=== PATIENT | male | born 1950 | race Caucasian/White ===

== ENCOUNTER 2025-01-30 12:15 | Emergency (ER) | payer OTHER ==
[~2025-01-30] VITALS: Ht 188 cm; Wt 79.4 kg
[2025-01-30] MEDS ORDERED: FentaNYL Citrate 50 MCG/ML 2 ML Injection IV ONE (12:50)
[2025-01-30 14:27] LABS: Alanine Aminotransfer (ALT/SGP 40 U/L (12-78); Albumin, Blood 3.2 g/dL (3.4-5.0); Albumin/Globulin Ratio 1.2 (0.8-1.8); Anion Gap 4 mmol/L (3-11); Aspartate Aminotrans (AST/SGOT 32 U/L (12-37); Bilirubin, Total 1.7 mg/dL (0.1-1.0); Blood Urea Nitrogen 18 mg/dL (8-24); CO2, Blood 30 mmol/L (21-32); Calcium, Blood 8.5 mg/dL (8.5-10.1); Chloride, Blood 104 mmol/L (98-108); Creatinine, Blood 0.63 mg/dL (0.40-1.20); Globulin, Blood 2.7 g/dL (2.2-4.0); Glucose, Blood 93 mg/dL (70-99); Potassium, Blood 3.9 mmol/L (3.5-5.5); Sodium, Blood 134 mmol/L (136-145); Total Protein, Blood 5.9 g/dL (6.4-8.2)
[2025-01-30 14:34] LABS: BASOPHILS ABSOLUTE AUTO 0.07 K/mm3 (0.00-0.23); BASOPHILS PERCENT AUTO 1 % (0-2); EOSINOPHILS ABSOLUTE AUTO 0.23 K/mm3 (0.00-0.68); EOSINOPHILS PERCENT AUTO 3 % (0-6); Hematocrit 37.1 % (33.0-53.0); Hemoglobin 12.2 g/dL (11.5-17.5); IMMATURE GRAN ABSOLUTE AUTO 0.02 K/mm3 (0.00-0.10); IMMATURE GRAN PERCENT AUTO 0 % (0-1); LYMPHOCYTES ABSOLUTE AUTO 1.14 K/mm3 (0.84-5.20); LYMPHOCYTES PERCENT AUTO 12 % (21-46); MONOCYTES ABSOLUTE AUTO 0.61 K/mm3 (0.16-1.47); MONOCYTES PERCENT AUTO 7 % (4-13); Mean Corpuscular HGB Conc 32.9 g/dL (31.5-36.5); Mean Corpuscular Volume 88 fL (80-100); NEUTROPHILS ABSOLUTE AUTO 7.27 K/mm3 (1.96-9.15); NEUTROPHILS PERCENT AUTO 78 % (41-73); NRBC ABSOLUTE 0.00 K/mm3 (0.00-0.02); NRBC Auto 0.0 /100 WBC (0.0-0.2); Platelet Count 177 K/mm3 (150-400); RDW Coefficient Variation 14.7 % (11.7-14.2); RDW Standard Deviation 47.2 fL (35.1-46.3)
[2025-01-31] MEDS ORDERED: ALBU2.5V5 INH (14:35)
[2025-01-31] MEDS ORDERED: ALBU90OI INH (14:35)
[2025-01-31] MEDS ORDERED: ATOR40TA PO (14:36)
[2025-01-31] MEDS ORDERED: ASPI81CH PO (14:36)
[2025-01-31] MEDS ORDERED: CALCIUM PO (14:40)
[2025-01-31] MEDS ORDERED: CLOBETASOL PROP59 ML (14:42)
[2025-01-31] MEDS ORDERED: FLUT1DIS5 INH (14:43)
[2025-01-31] MEDS ORDERED: FLONASE ALLERG9.9 M2 (14:45)
[2025-01-31] MEDS ORDERED: Mucus Relief400 MG PO (14:45)
[2025-01-31] MEDS ORDERED: Isosorbide Mono30 MG PO (14:48)
[2025-01-31] MEDS ORDERED: LORA10ER PO (14:48)
[2025-01-31] MEDS ORDERED: MULVITA PO (14:48)
[2025-01-31] MEDS ORDERED: NITR.4SL SL (14:49)
[2025-01-31] MEDS ORDERED: PANT40 PO (14:50)
[2025-01-31] MEDS ORDERED: TAMS.4ER PO (14:51)
[2025-01-31] MEDS ORDERED: STIOLTO RESPIMAT4 G2 INH (14:52)
== END 2025-01-30 15:26 | disposition home or self-care (01) ==
LOC: ER 12:15 → EDSEX 12:15 → ER 15:26
PROVIDERS: Student in an Organized Health Care Education/Training Program
DX: K41.90 Unilateral femoral hernia, without obstruction or gangrene, not specified as recurrent (principal); I10 Essential (primary) hypertension; N40.0 Benign prostatic hyperplasia without lower urinary tract symptoms; E78.5 Hyperlipidemia, unspecified; K21.9 Gastro-esophageal reflux disease without esophagitis; Z87.891 Personal history of nicotine dependence; Z88.8 Allergy status to other drugs, medicaments and biological substances; Z88.5 Allergy status to narcotic agent; J44.89 Other specified chronic obstructive pulmonary disease
CPT/HCPCS: 80053; 83605; 85025; 96374; 99284-25; J3010

== ENCOUNTER 2025-01-31 04:03 | Inpatient (IN) | payer OTHER ==
[2025-01-31] VITALS (15 sets, daily range): BP systolic 100–153; BP diastolic 58–138
[~2025-01-31] VITALS: Ht 188 cm; Wt 80.4 kg
[2025-01-31] MEDS ORDERED: Ketorolac Tromethamine 15mg Vial IV ONE (04:35)
[2025-01-31] MEDS ORDERED: Ondansetron HCl 2 MG / ML 2ML Vial IV ONE (04:35)
[2025-01-31 04:43] LABS: BASOPHILS ABSOLUTE AUTO 0.05 K/mm3 (0.00-0.23); BASOPHILS PERCENT AUTO 0 % (0-2); EOSINOPHILS ABSOLUTE AUTO 0.30 K/mm3 (0.00-0.68); EOSINOPHILS PERCENT AUTO 3 % (0-6); Hematocrit 38.7 % (33.0-53.0); Hemoglobin 12.9 g/dL (11.5-17.5); IMMATURE GRAN ABSOLUTE AUTO 0.05 K/mm3 (0.00-0.10); IMMATURE GRAN PERCENT AUTO 0 % (0-1); LYMPHOCYTES ABSOLUTE AUTO 1.10 K/mm3 (0.84-5.20); LYMPHOCYTES PERCENT AUTO 10 % (21-46); MONOCYTES ABSOLUTE AUTO 0.72 K/mm3 (0.16-1.47); MONOCYTES PERCENT AUTO 6 % (4-13); Mean Corpuscular HGB Conc 33.3 g/dL (31.5-36.5); Mean Corpuscular Volume 85 fL (80-100); NEUTROPHILS ABSOLUTE AUTO 9.04 K/mm3 (1.96-9.15); NEUTROPHILS PERCENT AUTO 80 % (41-73); NRBC ABSOLUTE 0.00 K/mm3 (0.00-0.02); NRBC Auto 0.0 /100 WBC (0.0-0.2); Platelet Count 176 K/mm3 (150-400); RDW Coefficient Variation 14.4 % (11.7-14.2); RDW Standard Deviation 44.7 fL (35.1-46.3)
[2025-01-31 07:59] LABS: Alanine Aminotransfer (ALT/SGP 47.0 U/L (12-78); Albumin, Blood 3.4 g/dL (3.4-5.0); Albumin/Globulin Ratio 1.1 (0.8-1.8); Anion Gap 11.0 mmol/L (3-11); Aspartate Aminotrans (AST/SGOT 42.0 U/L (12-37); Bilirubin, Total 2.5 mg/dL (0.1-1.0); Blood Urea Nitrogen 19.0 mg/dL (8-24); CO2, Blood 30.0 mmol/L (21-32); Calcium, Blood 9.3 mg/dL (8.5-10.1); Chloride, Blood 99.0 mmol/L (98-108); Creatinine, Blood 0.68 mg/dL (0.60-1.20); Globulin, Blood 3.0 g/dL (2.2-4.0); Glucose, Blood 104.0 mg/dL (70-99); Potassium, Blood 4.3 mmol/L (3.5-5.5); Sodium, Blood 136.0 mmol/L (136-145); Total Protein, Blood 6.4 g/dL (6.4-8.2)
[2025-01-31] MEDS ORDERED: Ondansetron HCl 2 MG / ML 2ML Vial IV PRN ×2 (11:00→14:25)
--- NOTE | 2025-01-31 11:20 | NUR ---
PT TO ROOM @1050. VSS. AXO4, PAINFUL AND C/O LITTLE NAUSEA. COMPLETING ADMISSION - AWAITING ORDERS. 1121 DR JACOB TO ROOM FOR PRE OP ASSESMENT.
[2025-01-31] MEDS ORDERED: CeFAZolin Sodium 2,000 MG in NS 100 ML IV SCH (13:15)
[2025-01-31] MEDS ORDERED: Bupivacaine 0.5% HCl 5 MG/ML 30MLVIAL ONE (13:15)
[2025-01-31] MEDS ORDERED: FentaNYL Citrate 50 MCG/ML 2 ML Injection IV PRN ×5 (13:20→15:50)
--- NOTE | 2025-01-31 13:52 | NUR ---
Patient up to Ambulate independently. Gait steady. History, Chart, Medications and Allergies reviewed before start of procedure. Lungs COARSE T/O. 2L O2 VIA NC. Patient confirms NPO status and agrees with scheduled surgery. Pre-Op teaching done. Pt verbalizes understanding.
[2025-01-31] MEDS ORDERED: Rocuronium Bromide 10 MG/ML 5ML Injection IV ONE (14:08)
[2025-01-31] MEDS ORDERED: Dexamethasone Sod Phos 10 MG/ML 1ML VIAL ONE (14:08)
[2025-01-31] MEDS ORDERED: Metoclopramide HCl 5MG / ML 2ML Vial ONE (14:08)
[2025-01-31] MEDS ORDERED: Sugammadex Sodium 200 MG/2ML SDV (100 MG/ML) ONE (14:08)
[2025-01-31] MEDS ORDERED: Ondansetron HCl 2 MG / ML 2ML Vial ONE ×2 (14:08→16:06)
[2025-01-31] MEDS ORDERED: FentaNYL Citrate 50 MCG/ML 5 ML Injection ONE (14:08)
[2025-01-31] MEDS ORDERED: Ipratropium/Albuterol SulF 2.5-0.5MG/3 ML Amp INH ONE (14:10)
--- NOTE | 2025-01-31 14:14 | NUR ---
2ND IV PLACED PER DR CAGLE PRIOR TO ROLL BACK TO OR.
[2025-01-31] MEDS ORDERED: Ipratropium Bromide INH 0.02% 0.5 mg/2.5ML Vial INH ONE (14:20)
[2025-01-31] MEDS ORDERED: Albuterol 2.5 MG/3 ML VIAL INH ONE ×2 (14:25→16:25)
[2025-01-31] MEDS ORDERED: Labetalol HCL 5 MG/ML 4ML Injection (Single Dose) IV PRN (14:25)
[2025-01-31] MEDS ORDERED: Albuterol 2.5 MG/3 ML VIAL INH PRN ×2 (14:30→17:00)
[2025-01-31] MEDS ORDERED: ALBU90OI INH (14:35)
[2025-01-31] MEDS ORDERED: ALBU2.5V5 INH (14:35)
[2025-01-31] MEDS ORDERED: ATOR40TA PO (14:36)
[2025-01-31] MEDS ORDERED: ASPI81CH PO (14:36)
[2025-01-31] MEDS ORDERED: CALCIUM PO (14:40)
[2025-01-31] MEDS ORDERED: CLOBETASOL PROP59 ML (14:42)
[2025-01-31] MEDS ORDERED: FLUT1DIS5 INH (14:43)
[2025-01-31] MEDS ORDERED: Mucus Relief400 MG PO (14:45)
[2025-01-31] MEDS ORDERED: FLONASE ALLERG9.9 M2 (14:45)
[2025-01-31] MEDS ORDERED: Isosorbide Mono30 MG PO (14:48)
[2025-01-31] MEDS ORDERED: MULVITA PO (14:48)
[2025-01-31] MEDS ORDERED: LORA10ER PO (14:48)
[2025-01-31] MEDS ORDERED: NITR.4SL SL (14:49)
[2025-01-31] MEDS ORDERED: PANT40 PO (14:50)
[2025-01-31] MEDS ORDERED: TAMS.4ER PO (14:51)
[2025-01-31] MEDS ORDERED: STIOLTO RESPIMAT4 G2 INH (14:52)
--- NOTE | 2025-01-31 15:43 | NUR ---
ASSUMPTION ASSUMED CARE OF PT @0700. AXO4. VSS. MED LIST UPDATED WITH . PT NPO PRE OP EXCEPT FOR NECESSARY MEDS. R INDEX FINGER, BLAACK, HARD, DULLED SENSATION. R MIDDLE FINGER WITH ULCERATION WELL BUT W/O ESCHAR OR DULLING OF SENSATION. PREOP INTERVENTIONS COMPLETED ON NOC PER REPORT. AWAITING PT TO COME OUT OF SURGERY CURRENTLY @5349. SPOUSE IN ROOM WAITING.
[2025-01-31] MEDS ORDERED: Albuterol 2.5 MG/3 ML VIAL ONE (15:46)
[2025-01-31] MEDS ORDERED: HYDROcodone 5-APAP 325 TAB PO PRN (15:50)
--- NOTE | 2025-01-31 16:33 | NUR ---
PT TO UNIT POSTOP @4790. AXO3. VSS. FLUIDS INFUSION. DRESSING TO L FEMORAL AREA CDI. PT DENYING PAIN/NAUSEA RN. EDUCATED TO GO SLOW WITH CL DIET, PT JUST TAKING ICE CHIPS RN.
[2025-01-31] MEDS ORDERED: Tiotropium Bromide 2.5 MCG/ACT MIST INHAL (10 ACT/4 GM) INH SCH (16:55)
[2025-01-31] MEDS ORDERED: GuaiFENesin 200 MG IR Tab PO PRN (17:05)
[2025-01-31] MEDS ORDERED: Albuterol HFA200 ACT/6.7 GM INH INH PRN (17:10)
[2025-01-31] MEDS ORDERED: Formoterol/Mometasone MDI 5/200 mcg 13 GM INH SCH (17:10)
--- NOTE | 2025-01-31 17:35 | NUR ---
summary POSTOP, PT CONTINUES TO BE AO X3-4. STILL WAKING UP FROM ANESTHESIA BUT RESPONDS APPRIATELY, PT STATES JUST FEELING "HAZY". SURGICAL SITE REMAINS CDI WITH DRESSING. VSS. TOLERATING CL DIET SLOWLY, PT HAS BEEN CAUTIOUS WITH RESUMPTION OF PO INTAKE. RESTING IN BED CURRENTLY. BED ALARM ON. CALL LIGHT WITHIN REACH. HOME MED LIST COMPLETED, DR CUELLO PLACED ORDERS TO MATCH.
--- NOTE | 2025-01-31 20:02 | NUR ---
MEDICATION PT REFUSED NOC MEDS. PT STATES HE BROUGHT HIS OWN MEDICATIONS FROM HOME. PT STATES "THE DOCTOR TOLD ME I CAN TAKE MY OWN MEDS." PT EDUCATED ON HOSPITAL POLICY c HOME MEDICATIONS. NO ORDERS ON PT CHART ALLOWING HOME MEDICATIONS. PT STATES "I JUST TOOK ONE" OF HIS HOME MEDICATIONS, PT RELAYS THE MEDICATION WAS AN INHALER. PT DENIES HOSPITAL ANALGESICS AT THIS TIME, PT STATES "I HAVE AN ASPIRIN IF I NEED IT." PT EDUCATED THOURGHLY ON NOT USING ASPIRIN POST-OP FOR PAIN R/T INCREASED RISK OF BLEEDING. PT UNWILLING TO SURRENDER HOME MEDICATIONS AT THIS TIME.
[2025-02-01 02:11] VITALS: BP 138/79
[2025-02-01 05:33] LABS: BASOPHILS ABSOLUTE AUTO 0.02 K/mm3 (0.00-0.23); BASOPHILS PERCENT AUTO 0 % (0-2); EOSINOPHILS ABSOLUTE AUTO 0.01 K/mm3 (0.00-0.68); EOSINOPHILS PERCENT AUTO 0 % (0-6); Hematocrit 34.0 % (37.0-53.0); Hemoglobin 11.4 g/dL (13.5-17.5); IMMATURE GRAN ABSOLUTE AUTO 0.06 K/mm3 (0.00-0.10); IMMATURE GRAN PERCENT AUTO 0 % (0-1); LYMPHOCYTES ABSOLUTE AUTO 0.82 K/mm3 (0.84-5.20); LYMPHOCYTES PERCENT AUTO 6 % (21-46); MONOCYTES ABSOLUTE AUTO 0.97 K/mm3 (0.16-1.47); MONOCYTES PERCENT AUTO 7 % (4-13); Mean Corpuscular HGB Conc 33.5 g/dL (31.5-36.5); Mean Corpuscular Volume 84 fL (80-100); NEUTROPHILS ABSOLUTE AUTO 11.73 K/mm3 (1.96-9.15); NEUTROPHILS PERCENT AUTO 86 % (41-73); NRBC ABSOLUTE 0.00 K/mm3 (0.00-0.02); NRBC Auto 0.0 /100 WBC (0.0-0.2); Platelet Count 157 K/mm3 (150-400); RDW Coefficient Variation 14.5 % (11.7-14.2); RDW Standard Deviation 44.5 fL (35.1-46.3)
--- NOTE | 2025-02-01 05:39 | NUR ---
SHIFT SUMMARY POD 1 HERNIA REPAIR. NO ACUTE CHANGES OVERNIGHT. VSS. TOLERATING MIN CLEAR LIQUID DIET, DENIES N/V, REPORTS SOME "REFLUX". ACTIVE BOWEL TONES, REPORTS PASSING FLATUS, NO BM. VOIDING. INCISION SITE C/D/I. BED ALARM IN USE, CALL LIGHT IN REACH, WILL REPORT TO DAY RN.
[2025-02-01 06:05] LABS: Alanine Aminotransfer (ALT/SGP 31.0 U/L (12-78); Albumin, Blood 2.8 g/dL (3.4-5.0); Albumin/Globulin Ratio 1.0 (0.8-1.8); Anion Gap 8.0 mmol/L (3-11); Aspartate Aminotrans (AST/SGOT 28.0 U/L (12-37); Bilirubin, Total 2.3 mg/dL (0.1-1.0); Blood Urea Nitrogen 21.0 mg/dL (8-24); CO2, Blood 29.0 mmol/L (21-32); Calcium, Blood 8.8 mg/dL (8.5-10.1); Chloride, Blood 100.0 mmol/L (98-108); Creatinine, Blood 0.78 mg/dL (0.60-1.20); Globulin, Blood 2.9 g/dL (2.2-4.0); Glucose, Blood 124.0 mg/dL (70-99); Potassium, Blood 4.1 mmol/L (3.5-5.5); Sodium, Blood 133.0 mmol/L (136-145); Total Protein, Blood 5.7 g/dL (6.4-8.2)
[2025-02-01 07:16] VITALS: BP 146/77
[2025-02-01] MEDS ORDERED: Isosorbide Mononitrate 30 MG TABCR PO SCH (09:00)
[2025-02-01] MEDS ORDERED: Fluticasone 0.05% Nasal Spray SCH (09:00)
[2025-02-01] MEDS ORDERED: Multivitamins 1 Tab PO SCH (09:00)
--- NOTE | 2025-02-01 11:31 | NUR ---
MEDS UPDATE PATIENT HAS ZIPLOCK BAG OF HOME MEDICATIONS AT BEDSIDE. TAKING HIS OWN MEDS AND IS NOT WILLING TO GIVE ZIPLOCK TO NURSING STAFF. EDUCATED ON POLICY OF HOME MED USE. DR. CUELLO AND SURGEON RESIDENT AWARE. THIS RN IS NOT MEDICATING PER EMAR PATIENT IS TAKING HIS OWN MEDS.
[2025-02-01 15:00] VITALS: BP 117/74
--- NOTE | 2025-02-01 16:23 | NUR ---
SHIFT SUMMARY PATIENT AOX4, ABD IS MODERATELY DISTENDED, REPORTS PASSING GAS, NO BM. REPORTS NAUSEA, PATIENT DENIES ZOFRAN. VOMITTED 600ML OF GREEN LIQUID. NO TOLRATING CLEAR LIQ. L FEMORAL SITE WITH TEGADERM AND GAUZE HAS LIGHT DRNG. DRESSING INTACT. ON 2L NC AT BASELINE. VSS. PT/OT ORDERED. PATIENT IS ABLE TO AMBULATE IN ROOM. PLAN TO KEEP OVERNIGHT PER DR. JACOB. CALL LIGHT IN REACH. WILL REPORT TO NIGHT RN.
[2025-02-01 21:04] VITALS: BP 123/71
[2025-02-02 04:41] LABS: BASOPHILS ABSOLUTE AUTO 0.04 K/mm3 (0.00-0.23); BASOPHILS PERCENT AUTO 1 % (0-2); EOSINOPHILS ABSOLUTE AUTO 0.27 K/mm3 (0.00-0.68); EOSINOPHILS PERCENT AUTO 3 % (0-6); Hematocrit 31.7 % (37.0-53.0); Hemoglobin 10.9 g/dL (13.5-17.5); IMMATURE GRAN ABSOLUTE AUTO 0.03 K/mm3 (0.00-0.10); IMMATURE GRAN PERCENT AUTO 0 % (0-1); LYMPHOCYTES ABSOLUTE AUTO 1.12 K/mm3 (0.84-5.20); LYMPHOCYTES PERCENT AUTO 13 % (21-46); MONOCYTES ABSOLUTE AUTO 0.69 K/mm3 (0.16-1.47); MONOCYTES PERCENT AUTO 8 % (4-13); Mean Corpuscular HGB Conc 34.4 g/dL (31.5-36.5); Mean Corpuscular Volume 84 fL (80-100); NEUTROPHILS ABSOLUTE AUTO 6.39 K/mm3 (1.96-9.15); NEUTROPHILS PERCENT AUTO 75 % (41-73); NRBC ABSOLUTE 0.00 K/mm3 (0.00-0.02); NRBC Auto 0.0 /100 WBC (0.0-0.2); Platelet Count 162 K/mm3 (150-400); RDW Coefficient Variation 14.7 % (11.7-14.2); RDW Standard Deviation 45.0 fL (35.1-46.3)
[2025-02-02 05:02] LABS: Alanine Aminotransfer (ALT/SGP 26.0 U/L (12-78); Albumin, Blood 2.6 g/dL (3.4-5.0); Albumin/Globulin Ratio 0.9 (0.8-1.8); Anion Gap 5.0 mmol/L (3-11); Aspartate Aminotrans (AST/SGOT 27.0 U/L (12-37); Bilirubin, Total 2.5 mg/dL (0.1-1.0); Blood Urea Nitrogen 19.0 mg/dL (8-24); CO2, Blood 31.0 mmol/L (21-32); Calcium, Blood 8.3 mg/dL (8.5-10.1); Chloride, Blood 100.0 mmol/L (98-108); Creatinine, Blood 0.74 mg/dL (0.60-1.20); Globulin, Blood 2.8 g/dL (2.2-4.0); Glucose, Blood 94.0 mg/dL (70-99); Potassium, Blood 3.8 mmol/L (3.5-5.5); Sodium, Blood 132.0 mmol/L (136-145); Total Protein, Blood 5.4 g/dL (6.4-8.2)
--- NOTE | 2025-02-02 05:09 | NUR ---
SHIFT SUMMARY POD 2 HERNIA REPAIR. NO ACUTE CHANGES OVERNIGHT. VSS. TOLERATING MIN CLEAR LIQUID DIET, DENIES N/V. HYPOACTIVE BOWEL TONES, ABD REMAINS MILDLY DISTENDED, REPORTS PASSING FLATUS, NO BM. VOIDING. INCISION SITE c QUARTER-SIZED DRIED SANG DRAINAGE, OTHERWISE C/D/I. AMBULATES c SBA. BED ALARM IN USE, CALL LIGHT IN REACH, WILL REPORT TO DAY RN.
[2025-02-02 07:52] VITALS: BP 138/97
[2025-02-02 14:08] VITALS: BP 102/63
--- NOTE | 2025-02-02 15:02 | NUR ---
PT WITH SUCCESSFUL BM. STATES "I WANT TO GO HOME NOW'. PT ENCOURAGED TO WAIT FOR MD DECISION.
--- NOTE | 2025-02-02 16:00 | NUR ---
ASSUMED CARE OF PATIENT AT THIS TIME.
[2025-02-02] MEDS ORDERED: ONDA4ODT PO (16:48)
--- NOTE | 2025-02-02 17:00 | NUR ---
DISCHARGE: PT DC TO HOME AT THIS TIME WITH FRIEND. PT VERBALIZED UNDERSTANDING OF FOLLOW UP, MEDICATIONS AND INSTRUCTIONS. NEW MED FAXED TO [facility]. DRESSING SUPPLIES PROVIDED. IV DC'D WNL. PT LEFT VIA WHEELCHAIR TO CAR WITH BELONGINGS.
== END 2025-02-02 17:03 | disposition home or self-care (01) | DRG 352 ==
LOC: ER 04:03 → EDSEX 04:03 → SURS 04:04
PROVIDERS: Emergency Medicine; Surgery; ADMIT Family Medicine
PROC: 0YU80JZ Supplement Left Femoral Region with Synthetic Substitute, Open Approach (ICD-10-PCS; principal; 2025-01-31 14:00)
DX: K41.30 Unilateral femoral hernia, with obstruction, without gangrene, not specified as recurrent (principal); K80.20 Calculus of gallbladder without cholecystitis without obstruction; J44.89 Other specified chronic obstructive pulmonary disease; I10 Essential (primary) hypertension; K21.9 Gastro-esophageal reflux disease without esophagitis; E78.5 Hyperlipidemia, unspecified; G25.81 Restless legs syndrome; E80.6 Other disorders of bilirubin metabolism; M54.50 Low back pain, unspecified; G89.29 Other chronic pain; N40.0 Benign prostatic hyperplasia without lower urinary tract symptoms; M19.90 Unspecified osteoarthritis, unspecified site; Z99.81 Dependence on supplemental oxygen; Z88.8 Allergy status to other drugs, medicaments and biological substances; Z88.5 Allergy status to narcotic agent; Z85.118 Personal history of other malignant neoplasm of bronchus and lung; Z87.891 Personal history of nicotine dependence; Z79.82 Long term (current) use of aspirin; Z79.51 Long term (current) use of inhaled steroids; Z79.899 Other long term (current) drug therapy
CPT/HCPCS: 36415; 74177; 80053; 83605; 85025; 93005; 93010; 94760; 94762; 96374; 96375; 97110; 97161; 99285-25; A9270; C1781; G0378; J1100; J1885; J2405; J2704; J2765; J3010; J7120; Q9967